=== PATIENT | male | born 1960 | race Caucasian/White ===

== ENCOUNTER 2017-01-27 00:49 | Observation (INO) | payer OTHER ==
[2017-01-27] MEDS ORDERED: KETOROLAC 30 MG/1 ML SDV ONE (01:00)
[2017-01-27] MEDS ORDERED: DEXAMETHASONE 10 MG/ML VIAL ONE (01:01)
[2017-01-27] MEDS ORDERED: RANITIDINE 50 MG/2 ML VIAL IVP ONE (01:11)
[2017-01-27] MEDS ORDERED: KETOROLAC 30 MG/1 ML SDV IVP ONE (01:12)
[2017-01-27] MEDS ORDERED: DEXAMETHASONE 10 MG/ML VIAL IVP ONE (01:12)
--- NOTE | 2017-01-27 01:18 | EDPHY ---
H & P Time Seen by Provider: 01/27/17 00:56 HPI/ROS: HPI Scratchy throat, difficulty breathing. 48-year-old male by ambulance with his . This patient reports that just prior to arrival he drank some NyQuil to help him sleep. Right after he drank NyQuil he felt a scratchiness and irritation in his throat. He cough. This sensation worsened and he felt tightness in his throat as well as scratchiness and was having difficulty breathing. Reports feeling somewhat better now but still has this sensation. He has had NyQuil many times in the past and has never had a reaction to this. He denies any previous allergic reactions similar to this. ROS: Constitutional: No fever, no chills. No weakness. Eyes: No discharge. No changes in vision. ENT: As above. No nasal congestion or rhinorrhea. Respiratory: No cough. As above. Cardiac: No chest pain, no palpitations. Gastrointestinal: No abdominal pain, no vomiting, no diarrhea. Genitourinary: No hematuria. No dysuria or increased frequency with urination. Musculoskeletal: No back pain. No neck pain. No myalgias or arthralgias. Skin: No rashes. Neurological: No headache. No focal weakness or altered sensation. Past medical history: He denies any significant past medical history. He is not on any prescription medications. Social history: Here with his . Nonsmoker. Physical Exam: General Appearance: Alert, no distress. This patient is responding to questions appropriately and in full sentences. This patient appears well- hydrated and well-nourished. Eyes: Pupils equal and round no pallor or injection. No lid edema, erythema or injection. ENT, Mouth: Mucous membranes are moist. The pharyngeal tissues are unremarkable. No edema or swelling. No asymmetry suggestive of abscess. No erythema or exudates. No stridor on auscultation of his neck. He does have a raspy scratchy voice with an intermittent dry cough. Respiratory: There are no retractions, lungs are clear to auscultation with good air movement bilaterally. No wheezing. No tachypnea. Cardiovascular: Regular rate and rhythm. No murmur. Neurological: Motor sensory function is grossly intact. Cranial nerves are normal. Gait is normal. Skin: Warm and dry, no rashes. Musculoskeletal: Neck is supple and nontender. Extremities are symmetrical. All joints range without pain or impingement. Psychiatric: No agitation. No depression. Database: EKG: Imaging: Soft tissue neck x-ray series: No radiopaque foreign body. Calcification noted of the thyroid cartilage. The epiglottis appears unremarkable. No acute pathology. Interpreted by me. Procedures: Emergency department course: IV placed. He was placed on a monitor. Vital signs reviewed. He is afebrile. He will initially be given 10 mg of IV Decadron, 30 mg of IV Toradol, 50 mg of IV ranitidine and 50 mg of IV Benadryl. He has no contraindications to ibuprofen/NSAID like medications. No history of renal problems. Soft tissue neck will be obtained. 2:20 a.m., patient re-evaluated. Resting comfortably at this time. He states that he feels better. He still has a mildly raspy voice. No stridor on auscultation of his neck. No issues swallowing. He is requesting some water to drink. Results of his neck x-ray discussed with him and his . Plan will be to continue to observe and reassess 3:00 a.m.. 3:15 a.m., patient re-evaluated. He continues to feel better but still has a scratchiness in his throat and raspy voice. On auscultation of his neck his upper airway sounds are clear and without stridor. Plan at this time will be to admit him to the hospitalist service for observation for the rest of the night. ENT verses pulmonology can be consulted to scope is upper airway if he remains symptomatic later this morning. This plan was discussed with the patient and his . They are in agreement. 3:20 a.m., discussed case with on-call hospitalist Dr. Rg. He accepts the patient for an observation admission. The patient's remaining emergency department course under my care has been uneventful. He was admitted in stable condition. Differential Diagnosis: The differential diagnosis on this patient includes but is not limited to allergic reaction, laryngeal inflammation. Anaphylaxis, anaphylactoid reaction , upper airway foreign body unlikely. This represents a partial list of diagnoses considered. These considerations are based on history, physical exam , past history, reassessment and diagnostic testing. Smoking Status: Former smoker Constitutional: Initial Vital Signs Temperature (C) 37.2 C 01/27/17 00:55 Heart Rate 100 08/15/17 00:55 Respiratory Rate 18 01/27/17 00:55 Blood Pressure 162/109 H 01/27/17 00:55 O2 Sat (%) 95 01/27/17 00:55 O2 Delivery Mode Room Air Allergies/Adverse Reactions: No Known Allergies Allergy (Unverified 01/27/17 01:16) Home Medications: Medication Instructions Recorded NK [No Known Home Meds] 01/27/17 Medical Decision Making - Data Points Medications Given: Discontinued Medications Dexamethasone (Decadron Injection) 10 mg IVP EDNOW ONE Stop: 01/27/17 01:13 Last Admin: 01/27/17 01:20 Dose: 10 mg Diphenhydramine HCl (Benadryl Injection) 50 mg IVP EDNOW ONE Stop: 01/27/17 01:12 Last Admin: 01/27/17 01:17 Dose: 50 mg Sodium Chloride (Ns) 500 mls @ 0 mls/hr IV ONCE ONE PRN Reason: Wide Open Stop: 01/27/17 01:26 Last Admin: 01/27/17 01:26 Dose: 500 mls Ketorolac Tromethamine (Toradol) 30 mg IVP EDNOW ONE Stop: 01/27/17 01:13 Last Admin: 01/27/17 01:19 Dose: 30 mg Ranitidine HCl (Zantac) 50 mg IVP EDNOW ONE Stop: 01/27/17 01:12 Last Admin: 01/27/17 01:18 Dose: 50 mg Departure - Departure Disposition: [facility] Inpatient Acute Clinical Impression: Allergic reaction, Congestion of upper airway Referrals: Patient,NotPresent [Unknown] - As per Instructions
[2017-01-27] MEDS ORDERED: NS 500 ML IV ONE (01:25)
[2017-01-27] MEDS ORDERED: ACETAMINOPHEN 325 MG TAB PO PRN (03:23)
[2017-01-27] MEDS ORDERED: ONDANSETRON DISINTEGRATING 4 MG TAB PO PRN (03:23)
[2017-01-27] MEDS ORDERED: ONDANSETRON 4 MG/2 ML VIAL IVP PRN (03:23)
[2017-01-27 03:29] LABS: % IMMATURE GRANULYOCYTES 0.3 % (0.0-1.1); ABSOLUTE IMMATURE GRANULOCYTES 0.02 10^3/uL (0.00-0.10); ADD DIFF? NO; ADD MORPH? NO; ADD SCAN? NO; ATYPICAL LYMPHOCYTE FLAG 10 (0-99); FRAGMENT RBC FLAG 0 (0-99); HEMATOCRIT 41.9 % (40.0-51.0); HEMOGLOBIN 13.8 g/dL (13.7-17.5); LEFT SHIFT FLG 0 (0-99); LIPEMIA HEMOLYSIS FLAG 80 (0-99); MEAN CELL HEMOGLOBIN 28.3 pg (27.9-34.1); MEAN CELL HEMOGLOBIN CONCENTR. 32.9 g/dL (32.4-36.7); MEAN PLATELET VOLUME 10.8 fL (8.7-11.7); PLATELET CLUMPS FLAG 0 (0-99); PLATELET COUNT 301 10^3/uL (150-400); RED BLOOD CELL COUNT 4.87 10^6/uL (4.40-6.38); RED CELL DISTRIBUTION WIDTH 13.6 % (11.5-15.2)
[2017-01-27 03:35] LABS: ANION GAP 13 mEq/L (8-16); CALCIUM 9.5 mg/dL (8.5-10.4); CARBON DIOXIDE 22 mEq/l (22-31); CHLORIDE 105 mEq/L (97-110); CREATININE 0.7 mg/dL (0.7-1.3); GLOMERULAR FILTRATION RATE > 60; GLUCOSE 90 mg/dL (70-100); POTASSIUM 4.3 mEq/L (3.5-5.2); SODIUM 140 mEq/L (134-144)
--- NOTE | 2017-01-27 03:47 | PDGENHP ---
History and Physical - Chief Complaint Dyspnea - History of Present Illness 56 yo M w/ no PMHx presents with acute onset of dyspnea and throat discomfort after taking Nyquil. Patient took Nyquil as a sleep aid and shortly after began to feel a sore, "scratchy" throat and some associated dyspnea. This has never occurred before and patient denies previous allergies. He also denies recent illness. He did have food about 2 hours prior to symptom onset as well. In the ED patient has been stable despite mild continuation of symptoms. History Information - Allergies/Home Medication List Allergies/Adverse Reactions: No Known Allergies Allergy (Unverified 01/27/17 01:16) Home Medications: NK [No Known Home Meds] 01/27/17 [Last Taken Unknown] I have personally reviewed and updated: family history, medical history - Past Medical History no pertinent PMH - Surgical History Reports: no pertinent surgical hx - Family History Additional family history: Brother has ALS - Social History Smoking Status: Former smoker Drug Use: None Review of Systems ROS: 10pt was reviewed & negative except for what was stated in HPI & below Physical Exam Temp Pulse Resp BP Pulse Ox 37.2 C 70 20 145/95 H 95 01/27/17 00:55 01/27/17 02:00 01/27/17 02:00 01/27/17 02:00 01/27/17 02:00 Constitutional: no apparent distress, appears nourished Eyes: PERRL, EOMI Ears, Nose, Mouth, Throat: moist mucous membranes, no oral mucosal ulcers Cardiovascular: regular rate and rhythym, no murmur, rub, or gallop Respiratory: no respiratory distress, no rales or rhonchi, clear to auscultation , other (No stridor) Skin: warm, no rashes or abrasions Musculoskeletal: full muscle strength, no muscle tenderness Neurologic: AAOx3, CN II-XII Intact Psychiatric: interacting appropriately, not anxious Lab Data & Imaging Review 01/27/17 01:15 01/27/17 01:15 WBC 5.96 10^3/uL (3.80-9.50) 01/27/17 01:15 RBC 4.87 10^6/uL (4.40-6.38) 01/27/17 01:15 Hgb 13.8 g/dL (13.7-17.5) 01/27/17 01:15 Hct 41.9 % (40.0-51.0) 01/27/17 01:15 MCV 86.0 fL (81.5-99.8) 01/27/17 01:15 MCH 28.3 pg (27.9-34.1) 01/27/17 01:15 MCHC 32.9 g/dL (32.4-36.7) 01/27/17 01:15 RDW 13.6 % (11.5-15.2) 01/27/17 01:15 Plt Count 301 10^3/uL (150-400) 01/27/17 01:15 MPV 10.8 fL (8.7-11.7) 01/27/17 01:15 Neut % (Auto) 47.8 % (39.3-74.2) 01/27/17 01:15 Lymph % (Auto) 37.9 % (15.0-45.0) 01/27/17 01:15 Chambers % (Auto) 7.6 % (4.5-13.0) 01/27/17 01:15 Eos % (Auto) 5.9 % (0.6-7.6) 01/27/17 01:15 Baso % (Auto) 0.5 % (0.3-1.7) 01/27/17 01:15 Nucleat RBC Rel Count 0.0 % (0.0-0.2) 01/27/17 01:15 Absolute Neuts (auto) 2.85 10^3/uL (1.70-6.50) 01/27/17 01:15 Absolute Lymphs (auto) 2.26 10^3/uL (1.00-3.00) 01/27/17 01:15 Absolute Monos (auto) 0.45 10^3/uL (0.30-0.80) 01/27/17 01:15 Absolute Eos (auto) 0.35 10^3/uL (0.03-0.40) 01/27/17 01:15 Absolute Basos (auto) 0.03 10^3/uL (0.02-0.10) 01/27/17 01:15 Absolute Nucleated RBC 0.00 10^3/uL (0-0.01) 01/27/17 01:15 Immature Gran % 0.3 % (0.0-1.1) 01/27/17 01:15 Immature Gran # 0.02 10^3/uL (0.00-0.10) 01/27/17 01:15 Sodium 140 mEq/L (134-144) 01/27/17 01:15 Potassium 4.3 mEq/L (3.5-5.2) 01/27/17 01:15 Chloride 105 mEq/L (97-110) 01/27/17 01:15 Carbon Dioxide 22 mEq/l (22-31) 01/27/17 01:15 Anion Gap 13 mEq/L (8-16) 01/27/17 01:15 BUN 17 mg/dL (7-23) 01/27/17 01:15 Creatinine 0.7 mg/dL (0.7-1.3) 01/27/17 01:15 Estimated GFR > 60 01/27/17 01:15 Glucose 90 mg/dL (70-100) 01/27/17 01:15 Calcium 9.5 mg/dL (8.5-10.4) 01/27/17 01:15 Imaging Review: XR neck without clear abnormality Visualized and Interpreted Chest x-ray results: Yes Chest X-Ray results: normal Assessment & Plan Assessment: 56 yo M w/ no PMHx presenting with acute onset throat discomfort and dyspnea after Nyquil ingestion. Plan: 1. Dyspnea - Clinical picture consistent with allergic reaction. Symptoms were temporally related to ingestion of Nyquil, although patient denies prior allergy to this or any other known substance. He denies symptoms of recent illness; physical exam largely unremarkable. No clear abnormality on XR neck. - Admit for observation, remains mildly symptomatic - S/p dexamethasone, benadryl, toradol, and ranitidine in ED - Consider ENT consult if symptoms not resolved by later today Diet - Regular Code - Full Ppx - Low risk Dispo - Admit to Obs
[2017-01-27 08:44] VITALS: BP 126/75; PULSE 73; RESP 16; TEMP 98.6; O2SAT 93
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
== END 2017-01-27 13:51 | disposition home or self-care (01) ==
LOC: F1N 03:46
PROVIDERS: ADMIT Student in an Organized Health Care Education/Training Program; ATTEND Student in an Organized Health Care Education/Training Program
DX: R06.02 Shortness of breath (principal)
CPT/HCPCS: 70360; G0378; 96374; J1100; J1200; J1885; J2780